=== PATIENT | female | born 1980 | race Caucasian/White ===

== ENCOUNTER 2017-05-24 14:42 | Emergency (ER) | payer OTHER ==
[~2017-05-24] VITALS: Ht 162.6 cm; Wt 68.5 kg
[2017-05-24 14:45] VITALS: Ht 162.6 cm; Wt 68.5 kg
[2017-05-24 16:07] LABS: ADD SCAN DIFF NO
[2017-05-24 16:11] LABS: BASOPHILS % 0.7 % (0.0-2.0); EOSINOPHILS # 0.2 10^3/ul (0.0-0.5); EOSINOPHILS % 2.8 % (0.0-7.0); HEMATOCRIT 42.9 % (37.0-47.0); HEMOGLOBIN 14.1 g/dl (12.0-16.0); MEAN CORPUSCULAR HEMOGLOBIN 29.4 pg (29.0-33.0); MEAN CORPUSCULAR HGB CONC 32.9 g/dl (32.0-37.0); MEAN CORPUSCULAR VOLUME 89.4 fl (82.0-101.0); MEAN PLATELET VOLUME 9.5 fl (7.4-10.4); MONOCYTE # 0.3 10^3/ul (0.3-0.9); MONOCYTES % 5.5 % (0.0-11.0); NEUTROPHIL # 3.3 10^3/ul (1.6-7.5); NEUTROPHILS % 56.8 % (39.0-77.0); PLATELET COUNT 267 10^3/UL (140-415); RED CELL DISTRIBUTION WIDTH 12.5 % (11.5-14.5); WHITE BLOOD COUNT 5.8 10^3/ul (4.8-10.8)
[2017-05-24 16:15] LABS: ADD UMIC YES; UR ASCORBIC ACID 40 mg/dL (NEGATIVE); UR BACTERIA FEW /HPF (NONE SEEN); UR BILIRUBIN (Dip) NEGATIVE (NEGATIVE); UR BLOOD (Dip) 1+ mg/dL (NEGATIVE); UR CLARITY CLEAR (CLEAR); UR COLOR YELLOW (YELLOW); UR GLUCOSE (Dip) NEGATIVE (NEGATIVE); UR KETONES (Dip) NEGATIVE (NEGATIVE); UR LEUKOCYTE ESTERASE (Dip) NEGATIVE Leu/ul (NEGATIVE); UR MUCUS FEW /HPF (NONE SEEN); UR NITRITE (Dip) NEGATIVE (NEGATIVE); UR RBC 6 /HPF (0-5); UR SPECIFIC GRAVITY (Dip) 1.017 (1.003-1.030); UR TOTAL PROTEIN (Dip) NEGATIVE (NEGATIVE); UR UROBILINOGEN (Dip) NEGATIVE (NEGATIVE)
--- NOTE | 2017-05-24 16:48 | RADRPT ---
PROCEDURE: OBSTETRICAL ULTRASOUND WITH ENDOVAGINAL IMAGES CLINICAL INDICATION: Vaginal Bleed () TECHNIQUE: Multiple sonographic images of the pelvis were obtained utilizing a transabdominal and endovaginal technique. The images were reviewed on a PACS workstation. COMPARISON: None. LMP: 03/23/2017 FINDINGS: There is a single intrauterine with mean sac diameter of 1.29 cm, and crown-rump length of 1.02 cm which is consistent with a gestational age of 7 weeks, 1 day . The estimated gestational age by LMP is 8 weeks, 6 days . The estimated date of delivery by LMP is 12/28/2017 . No heart tones are detected. The right ovary measures 4.2 x 2.5 x 3.2 cm. The left ovary measures 3.6 x 2.2 x 3.8 cm. There is no rmal vascular flow in both ovaries. There is a 1.8 cm cystic lesion with low level internal echoes and thick bowman in the left ovary whi ch may be a hemorrhagic/corpus luteal cyst. No significant pelvic free fluid is identified. IMPRESSION: A single intrauterine gestation is identified with crown-rump length of 1.02 cm which would be consi stent with a gestational age of 7 weeks, 1 day. No heart tones are detected consistent with e katina demise. Continued sonographic follow-up is recommended. 1.8 cm complex cystic lesion in the left ovary may be a hemorrhagic/corpus luteal cyst. These findings were discussed with Tip Ma (N) over the phone on 05/24/2017 at 4:47 PM . RPTAT: EE Physician Victorino Date Time Electronically viewed and signed by Physician Victorino on 05/24/2017 16:48 /
--- NOTE | 2017-05-24 17:24 | ERD ---
ER Documentation Chief Complaint Date/Time DATE: 05/24/17 TIME: 17:22 Chief Complaint PT with VB x 3 days and 8 weeks , heavier today. HPI This 36-year-old female is a G1 para 0 with vaginal spotting for last 3 days. She is approximately 8 weeks by dates. She denies any fevers, vomiting , shortness breath or chest pain. She has not yet received care. ROS All systems reviewed and are negative except as per history of present illness. Allergies Allergies: Coded Allergies: No Known Allergy (Unverified , 05/24/17) PMhx/Soc Medical and Surgical Hx: pt denies Medical Hx, pt denies Surgical Hx Hx Alcohol Use: No Hx Substance Use: No Hx Tobacco Use: No Physical Exam Vitals Vital Signs Date Time Temp Pulse Resp B/P Pulse Ox O2 Delivery O2 Flow Rate FiO2 05/24/17 14:45 98.3 76 18 137/75 97 Physical Exam Const: [] Head: Atraumatic Eyes: Normal Conjunctiva ENT: Normal External Ears, Nose and Mouth. Neck: Full range of motion..~ No meningismus. Resp: Clear to auscultation bilaterally Cardio: Regular rate and rhythm, no murmurs Abd: Soft, non tender, non distended. Normal bowel sounds Skin: No petechiae or rashes Back: No midline or flank tenderness Ext: No cyanosis, or edema Neur: Awake and alert Psych: Normal Mood and Affect Result Diagram: 05/24/17 1550 Results 24 hrs Laboratory Tests Test 05/24/17 15:50 White Blood Count 5.810^3/ul Red Blood Count 4.8010^6/ul Hemoglobin 14.1g/dl Hematocrit 42.9% Mean Corpuscular Volume 89.4fl Mean Corpuscular Hemoglobin 29.4pg Mean Corpuscular Hemoglobin Concent 32.9g/dl Red Cell Distribution Width 12.5% Platelet Count 14292^3/UL Mean Platelet Volume 9.5fl Neutrophils % 56.8% Lymphocytes % 34.0% Monocytes % 5.5% Eosinophils % 2.8% Basophils % 0.7% Nucleated Red Blood Cells % 0.0/100WBC Neutrophils # 3.310^3/ul Lymphocytes # 2.010^3/ul Monocytes # 0.310^3/ul Eosinophils # 0.210^3/ul Basophils # 0.010^3/ul Nucleated Red Blood Cells # 0.010^3/ul Urine Color YELLOW Urine Clarity CLEAR Urine pH 6.0 Urine Specific [place] 1.017 Urine Ketones NEGATIVEmg/dL Urine Nitrite NEGATIVEmg/dL Urine Bilirubin NEGATIVEmg/dL Urine Urobilinogen NEGATIVEmg/dL Urine Leukocyte Esterase NEGATIVELeu/ul Urine Microscopic RBC 6/HPF Urine Microscopic WBC 1/HPF Urine Bacteria FEW/HPF Urine Mucus FEW/HPF Urine Hemoglobin 1+mg/dL Urine Glucose NEGATIVEmg/dL Urine Total Protein NEGATIVEmg/dl Beta HCG, Quantitative 1270.3mIU/ml Procedures/MDM Patient is Rh+. Quantitative hCG is 1270. Pelvic ultrasound shows intrauterine gestation of approximately 7 weeks 1 day. No heart tones appreciated. Follow-up recommended. Patient was stable throughout the ED course. Patient presents with vaginal spotting for 1 day with signs of possible demise. She may have early normal . Current signs do not suggest ectopic . She will discharged home with OB follow-up and recommended to do a recheck in 4 months for further information. She should otherwise recheck sooner for fevers, vomiting, shortness breath or chest pain, worsening bleeding, new symptoms. Departure Diagnosis: Primary Impression: Vaginal bleeding in patient at less than 20 weeks ges... Condition: Stable Patient Instructions: Bleeding During Early Additional Instructions: Examinations today show possible early miscarriage or possible but less likely early . Recommend recheck in 2 days for hormone level. See OB this week for follow-up. Recheck for fevers, worsening pain, bleeding, otherwise. ANKUSH RICE MD May 24, 2017 17:24
[2017-05-24 18:00] VITALS: BP 128/77; PULSE 87; RESP 16
== END 2017-05-24 18:02 | disposition home or self-care (01) ==
LOC: FTE 14:42
DX: O20.9 Hemorrhage in early pregnancy, unspecified (principal); Z3A.01 Less than 8 weeks gestation of pregnancy
CPT/HCPCS: 36415; 76801; 76817; 81001; 84702; 85025; 86900; 86901; Z7502